=== PATIENT | male | born 1950 | race Caucasian/White ===

== ENCOUNTER 2016-06-20 13:41 | Observation (INO) | payer OTHER ==
[~2016-06-20] VITALS: Ht 165.1 cm; Wt 95.5 kg
[2016-06-20 13:55] LABS: POINT-OF-CARE METER ID UU13113778
[2016-06-20 14:33] LABS: HEMATOCRIT 43.6 % (38.0-50.0); MCH 30.4 PG (29.0-34.0); MCHC 35.3 G/DL (30.0-36.0); MCV 86.2 FL (86-99); MEAN PLAT.VOLUME 10.3 uM^3 (9.0-12.4); PLATELET COUNT 182 K/uL (156-360); RBC DIS.WIDTH-CV 12.3 % (11.8-14.6); RBC DIS.WIDTH-SD 37.9 % (39-53); RED BLOOD COUNT 5.06 M/uL (4.00-5.50); WHITE BLOOD COUNT 8.1 K/uL (4.1-10.2)
[2016-06-20 14:42] LABS: CHLORIDE 102 mEq/L (99-109); POTASSIUM 4.9 mEq/L (3.7-5.4); SODIUM 136 mEq/L (136-147)
[2016-06-20 14:45] LABS: GLUCOSE 325 mg/dL (70-99)
[2016-06-20 14:46] LABS: ANION GAP 11 MEQ/L (2-14)
[2016-06-20 14:47] LABS: TOTAL BILIRUBIN 1.5 mg/dL (0.0-1.0)
[2016-06-20 14:48] LABS: ALKALINE PHOSPHATASE 82 IU/L (3-129); D-DIMER ELISA 0.84 mg/L FEU (< 0.57)
[2016-06-20 14:49] LABS: GFR ESTIMATE (CALCULATED) > 59 mL/min/; UREA NITROGEN (BUN) 19 mg/dL (9-23)
[2016-06-20 14:55] LABS: TROP-I INTERPRETATION NEGATIVE; TROPONIN-I 0.02 ng/mL (0.0-0.30)
[2016-06-20 16:38] LABS: POINT-OF-CARE METER ID UU13113702
[2016-06-20] MEDS ORDERED: CHLORTHALIDONE25 MG PO (17:29)
[2016-06-20] MEDS ORDERED: A AND D OINTM42.5 GM TP (17:29)
[2016-06-20] MEDS ORDERED: CALCIUM 500 MG1 EACH PO (17:29)
[2016-06-20] MEDS ORDERED: GABAPENTIN600 MG PO (17:30)
[2016-06-20] MEDS ORDERED: LEXAPRO10 MG PO (17:30)
[2016-06-20] MEDS ORDERED: VITAMIN D31000 UNIT PO (17:30)
[2016-06-20] MEDS ORDERED: PLAVIX75 MG PO (17:30)
[2016-06-20] MEDS ORDERED: GLUCOSE4 GM PO (17:30)
[2016-06-20] MEDS ORDERED: HYDROXYZINE HCL10 MG PO (17:30)
[2016-06-20] MEDS ORDERED: ISOSORBIDE MONO30 MG PO (17:31)
[2016-06-20] MEDS ORDERED: MELOXICAM15 MG PO (17:31)
[2016-06-20] MEDS ORDERED: CRESTOR40 MG PO (17:32)
[2016-06-20] MEDS ORDERED: METOPROLOL SUCC25 MG PO (17:32)
[2016-06-20] MEDS ORDERED: PREDNISONE5 MG PO (17:32)
[2016-06-20] MEDS ORDERED: HUMULIN R500 UNIT/1 SC ×2 (17:35→17:36)
[2016-06-20] MEDS ORDERED: LISINOPRIL40 MG PO (17:36)
[2016-06-20] MEDS ORDERED: ASPIR 8181 M1 PO (17:37)
[2016-06-20] MEDS ORDERED: FISH OIL 1,0001 EAC7 PO (17:37)
[2016-06-20 20:00] VITALS: BP 178/84
[2016-06-20 20:54] LABS: POINT-OF-CARE METER ID UU14162513
[2016-06-21 04:00] VITALS: BP 169/95
[2016-06-21 07:30] VITALS: BP 191/92
[2016-06-21 11:28] VITALS: BP 153/76
[2016-06-21 11:48] VITALS: BP 160/72
[2016-06-21 12:30] LABS: POINT-OF-CARE METER ID UU13113831
[2016-06-21] MEDS ORDERED: METOPROLOL SUCC25 MG PO (12:53)
== END 2016-06-21 13:26 | disposition home or self-care (01) ==
LOC: EME 13:41 → EDOF 17:51 → 5WEST 19:40
PROVIDERS: Emergency Medicine; Family Medicine; Hospitalist
DX: E86.0 Dehydration (principal); E87.2 Acidosis; E11.65 Type 2 diabetes mellitus with hyperglycemia; Z91.19 Patient's noncompliance with other medical treatment and regimen; R11.2 Nausea with vomiting, unspecified; I10 Essential (primary) hypertension; I25.10 Atherosclerotic heart disease of native coronary artery without angina pectoris; Z95.1 Presence of aortocoronary bypass graft; Z79.4 Long term (current) use of insulin; Z95.5 Presence of coronary angioplasty implant and graft; I73.9 Peripheral vascular disease, unspecified; F32.9 Major depressive disorder, single episode, unspecified; F41.9 Anxiety disorder, unspecified; Z87.891 Personal history of nicotine dependence
CPT/HCPCS: 71010; 71275; 80053; 81003; 82010; 82948; 83605; 84484; 85027; 85379; 93005; 99281; 99285; G0378; J1650; J1815; J2060; J2405; J7030; J7512